=== PATIENT | male | born 1995 | race Caucasian/White ===

== ENCOUNTER 2016-11-29 21:40 | Emergency (ER) | payer MEDICAID ==
--- NOTE | 2016-11-29 23:34 | ED Physician Chart ---
Chief Complaint/HPI - Patient Information Date Seen:: 11/29/16 Time Seen:: 22:13 Chief Complaint:: TAILBONE AREA PAIN History of Present Illness:: THIS IS A 21 YEAR OLD OBESE MALE WHO STATES THAT HIS COCCYX AREA STARTED TO ACHE AND HE DENIES TRAUMA. HE DENIES EXUDATE OR FEVER. THE PATIENT STATES THAT HE HAS NEVER HAD THIS PROBLEM BEFORE. HE DENIES ALL OTHER ILLNESSES. Allergies:: Allergies Allergy/AdvReac Type Severity Reaction Status Date / Time No Known Allergies Allergy Verified 11/29/16 22:19 Vitals:: Vital Signs - 8 hr 11/29/16 11/29/16 22:09 22:55 Temp 98.8 F 98.7 F HR 112 98 RR 20 18 BP 143/84 138/79 O2 Sat % 98 100 Historian:: Patient Review:: Nurse's Note Reviewed Review of Systems - Review of Systems GI: Other (COCCYX AREA TENDERNESS AND SWELLING) Past Medical History - Past Medical History Obtainable: Yes Past Medical History: No significant medical hx Family History: None Social History: Non Smoker, No Alcohol, No Drug Use Surgical History: None Psychiatricy History: None Medication: Reviewed Family Medical History - Family Member Mother History Unknown: Yes Physical Exam - Physical Examination General/Constitutional: Awake, Well-developed, well-nourished, Alert, No distress, GCS 15, Non-toxic appearing, Ambulatory Other Gen/Cons comments:: OBESE Head: Atraumatic Eyes: Lids, conjuctiva normal, PERRL, EOMI Skin: Nl inspection, No rash, No skin lesions, No ecchymosis, Well hydrated, No lymphadenopathy ENMT: External ears, nose nl, Nasal exam nl, Lips, teeth, gums nl Neck: Nontender, Full ROM w/o pain, No JVD, No nuchal rigidity, No bruit, No mass, No stridor Respiratory: Nl effort/Exclusion, Clear to Auscultation, No Wheeze/Rhonchi/Rales Cardio Vascular: RRR, No murmur, gallop, rubs, NL S1 S2 GI: No tenderness/rebounding/guarding, No organomegaly, No hernia, Normal BS's, Nondistended, No mass/bruits, No McBurney tenderness Other GI comments:: THERE IS TENDERNESS OF THE AREA JUST ABOVE THE ANUS EXTENDING UPWARD WITH SLIGHT REDNESS COCCYX AREA. : No CVA tenderness Extremities: No tenderness or effusion, Full ROM, normal strength in all extremities, No edema, Normal digits & nails Neuro/Psych: Alert/oriented, DTR's symmetric, Normal sensory exam, Normal motor strength, Judgement/insight normal, Mood normal, Normal gait, No focal deficits Misc: normal gait, Normal back, No paraspinal tenderness Assessment - Assessment General Assessment: CELLULITIS AND POSSIBLY AN EARLY PINOLINOL CYST. ED Septic Shock - . Is Septic Shock (SBP<90, OR Lactate>4 mmol\L) present?: No - <6hrs of presentation: Vital Signs: Vital Signs - 8 hr 11/29/16 11/29/16 22:09 22:55 Temp 98.8 F 98.7 F HR 112 98 RR 20 18 BP 143/84 138/79 O2 Sat % 98 100 Reassessment (Disposition) - Reassessment Reassessment Condition:: Unchanged - Diagnosis Diagnosis:: HARMONY CYST FORMATION IN THE COCCYX AREA. - Aftercare/Follow up Instructions Aftercare/Follow-Up Instructions:: Counseled pt regarding lab results/diagnosis & need follow up, Refer to Discharge Instructions, Counseled pt & family regarding lab results/diagnosis & need follow up - Patient Disposition Discharge/Transfer:: Home Condition at Disposition:: Unchanged ED Discharge Plan - Patient Disposition Admit/Discharge/Transfer: PT DISCHARGED HOME Condition at Disposition: Unchanged Instructions: Pilonidal Cyst Additional Instructions: take medication as prescribed. return to er for worsening symptoms.
--- NOTE | 2016-11-30 09:27 | Diagnostic Imaging Report ---
Sacrum and coccyx 2 views History: Pain Comparison: None Findings: There are minimal degenerative changes involving the bilateral SI joints. No evidence of acute fracture or dislocation. No gross focal soft tissue abnormality. IMPRESSION: No evidence of an acute fracture. Minimal degenerative changes of bilateral SI joints. In the setting of trauma, if clinical symptoms persist and there is continued concern for an occult fracture, follow up exams in 5-7 days is recommended.
== END 2016-11-29 22:55 | disposition home or self-care (01) ==
LOC: ER 21:40
DX: L03.312 Cellulitis of back [any part except buttock and flank] (principal); L72.9 Follicular cyst of the skin and subcutaneous tissue, unspecified
CPT/HCPCS: 72220-TC; Z7502